=== PATIENT | female | born 1980 | race Caucasian/White ===

== ENCOUNTER → 2024-08-08 10:50 | Outpatient (REF) | payer BC, SELFPAY | LOC: HWWDC 10:50 | PROVIDERS: ATTENDING PHYSICIAN Obstetrics & Gynecology; FAMILY PHYSICIAN Family Medicine | DX: Z12.31 Encounter for screening mammogram for malignant neoplasm of breast (principal) | CPT/HCPCS: 77063; 77067 ==

== ENCOUNTER → 2024-09-23 14:56 | Outpatient (REF) | payer BC, SELFPAY | LOC: WDC 14:56 | PROVIDERS: ATTENDING PHYSICIAN Obstetrics & Gynecology; FAMILY PHYSICIAN Family Medicine | DX: R92.2 Inconclusive mammogram (principal) | CPT/HCPCS: 76641 ==